=== PATIENT | male | born 1950 | race Hispanic/Latino ===

== ENCOUNTER 2022-06-17 12:58 | Emergency (ER) | payer OTHER ==
[2022-06-17 14:02] LABS: #Eosinphils 0.4 10x3/uL (0.0-0.5); #Monocytes 0.5 10x3/uL (0.0-1.1); #Neutrophils 3.1 10x3/uL (1.5-8.4); %Basophils 0.6 % (0.0-2.0); %Eosinophils 5.8 % (0.0-6.0); %Lymphocytes 38.8 % (18.0-47.0); %Monocytes 7.9 % (0.0-10.0); %Neutrophils 46.5 % (40.0-75.0); Hemoglobin 12.5 g/dL (13.5-17.5); Mean Corpuscular HGB CONC 33.7 g/dL (32.0-36.0); Mean Corpuscular Volume 92.1 fl (81.2-95.1); Mean Platelet Volume 9.2 fl (7.4-10.4); Platelet Count 216 10x3/uL (150-450); RBC Distribution Width 11.9 % (11.5-14.5); Red Blood Cell (RBC) Count 4.03 10x6/uL (4.32-5.72); White Blood Cell (WBC) Count 6.7 10x3/uL (3.5-10.5)
[2022-06-17 14:11] LABS: ALT (SGPT) 20 U/L (8-55); AST (SGOT) 26 U/L (5-34); Albumin 3.8 g/dL (3.4-4.8); Alkaline Phosphatase 63 U/L (40-110); Anion Gap 13 mmol/L (10-20); BUN (Urea Nitrogen) 47 mg/dL (8.4-25.7); Bilirubin, Total 0.4 mg/dL (0.2-1.2); Calc. Creatinine Clearance 0 mL/min (70-130); Calcium 9.4 mg/dL (7.8-10.44); Carbon Dioxide 26 mmol/L (23-31); Chloride 98 mmol/L (98-107); Estimated GFR 35; Globulin 4.4 g/dL (2.4-3.5); Glucose 365 mg/dL (83-110); Potassium 5.1 mmol/L (3.5-5.1); Protein, Total 8.2 g/dL (5.8-8.1); Sodium 132 mmol/L (136-145)
[2022-06-17 14:21] LABS: Platelet Morphology Comment Appears Adequate
[2022-06-17] MEDS ORDERED: Cefepime 2 GM VIAL ONE (14:54)
[2022-06-17] MEDS ORDERED: VANCOMYCIN 2 GRAM/400 ML BAG 2 GM in Premix Bag 1 BAG IVPB SCH (16:00)
[2022-06-17 16:36] LABS: Lactic Acid 1.8 mmol/L (0.5-2.2)
== END 2022-06-17 19:13 | disposition home or self-care (01) ==
LOC: CSHERS 12:58
DX: E11.621 Type 2 diabetes mellitus with foot ulcer (principal); L97.529 Non-pressure chronic ulcer of other part of left foot with unspecified severity; E11.22 Type 2 diabetes mellitus with diabetic chronic kidney disease; I12.9 Hypertensive chronic kidney disease with stage 1 through stage 4 chronic kidney disease, or unspecified chronic kidney disease; N18.9 Chronic kidney disease, unspecified; E78.5 Hyperlipidemia, unspecified; Z87.891 Personal history of nicotine dependence
CPT/HCPCS: 36415; 80053; 83605; 85025; 87040; 87070; 87077; 87186; 87205; 96365; 96366; 96367; J0692; J3370

== ENCOUNTER 2022-12-20 09:47 | Outpatient (CLI) | payer OTHER | END 2022-12-20 09:48 | disposition home or self-care (01) | LOC: CSHWCC 09:47 | PROVIDERS: ATTEND Nurse Practitioner Family | DX: L89.322 Pressure ulcer of left buttock, stage 2 (principal); L89.620 Pressure ulcer of left heel, unstageable | CPT/HCPCS: 97139; G0463; 99213 ==

== ENCOUNTER 2023-01-17 09:35 | Outpatient (CLI) | payer OTHER | END 2023-01-17 09:36 | disposition home or self-care (01) | LOC: CSHWCC 09:35 | PROVIDERS: ATTEND Nurse Practitioner Family | DX: L89.322 Pressure ulcer of left buttock, stage 2 (principal); L89.620 Pressure ulcer of left heel, unstageable | CPT/HCPCS: 97597 ==

== ENCOUNTER 2023-02-21 10:29 | Outpatient (CLI) | payer OTHER | END 2023-02-21 10:30 | disposition home or self-care (01) | LOC: CSHWCC 10:29 | PROVIDERS: ATTEND Nurse Practitioner Family | DX: L89.322 Pressure ulcer of left buttock, stage 2 (principal); L89.620 Pressure ulcer of left heel, unstageable | CPT/HCPCS: 97139; G0463; 99213 ==

== ENCOUNTER 2024-01-04 09:39 | Emergency (ER) | payer OTHER | END 2024-01-04 12:05 | disposition home or self-care (01) | LOC: CSHERS 09:39 | DX: Z45.2 Encounter for adjustment and management of vascular access device (principal); I12.9 Hypertensive chronic kidney disease with stage 1 through stage 4 chronic kidney disease, or unspecified chronic kidney disease; N18.9 Chronic kidney disease, unspecified; E11.22 Type 2 diabetes mellitus with diabetic chronic kidney disease; Z87.891 Personal history of nicotine dependence | CPT/HCPCS: 36569; 76937; 77001 ==